=== PATIENT | female | born 1995 | race Caucasian/White ===

== ENCOUNTER 2021-06-27 10:41 | Outpatient (CLI) | payer BC ==
[2021-06-27 11:23] LABS: Basophils % (Auto) 0.2 % (0.0-1.8); Eosinophils # (Auto) 0.3 K/mm3 (0.0-0.4); Eosinophils % (Auto) 3.4 % (0.0-4.3); Hematocrit 43.3 % (30.3-42.9); Hemoglobin 14.2 gm/dl (10.1-14.3); Lymphocytes # (Auto) 2.7 K/mm3 (1.2-5.4); Lymphocytes % (Auto) 33.3 % (13.4-35.0); Mean Corpuscular HGB Conc 33 % (30-34); Mean Corpuscular Volume 88 fl (79-97); Monocytes # (Auto) 0.5 K/mm3 (0.0-0.8); Monocytes % (Auto) 6.5 % (0.0-7.3); Platelet Count 228 K/mm3 (140-440)
[2021-06-27 11:37] LABS: Bilirubin,Urine NEG (Negative); Blood,Urine NEG (Negative); Color,Urine Yellow (Yellow); Mucus,Urine FEW /HPF; Protein,Urine <15 mg/dL mg/dL (Negative); Urobilinogen,Urine < 2.0 mg/dL (<2.0)
[2021-06-27 12:03] LABS: Alanine Aminotransferase 25 units/L (7-56); Albumin 4.3 g/dL (3.9-5); BUN/Creatinine Ratio 9; Blood Urea Nitrogen 7 mg/dL (7-17); Calcium 9.6 mg/dL (8.4-10.2); HDL Cholesterol 37 mg/dL (40-59); Hemolysis Index 6; LDL Cholesterol,Direct 101 mg/dL (50-130)
--- NOTE | 2021-06-27 12:42 | XRay Report ---
CHEST 2 VIEWS INDICATION: SOB. COMPARISON: none FINDINGS: Support devices: None. Heart: Within normal limits. Lungs/pleura: No acute air space or interstitial disease. No pleural abnormality or pneumothorax. Additional findings: None. IMPRESSION: Normal chest x-ray. LUMBOSACRAL SPINE 3 VIEWS INDICATION: Back pain. COMPARISON: None. IMPRESSION: Normal alignment. No significant discogenic DJD or facet arthropathy. The SI joints are unremarkable. No acute osseous or soft tissue abnormality. Signer Name: J Luis Ellis Jr, MD Signed: 06/27/2021 12:37 PM Workstation Name: [id number]
== END 2021-06-27 10:42 | disposition home or self-care (01) ==
LOC: XRAY 10:41
PROVIDERS: ATTEND Internal Medicine
DX: Z00.00 Encounter for general adult medical examination without abnormal findings (principal); E66.09 Other obesity due to excess calories; R53.83 Other fatigue; N39.0 Urinary tract infection, site not specified; M54.50 Low back pain, unspecified
CPT/HCPCS: 36415; 71046; 72100; 80053; 80061; 81001; 82607; 84443; 85025